=== PATIENT | male | born 1985 | race Hispanic/Latino ===

== ENCOUNTER → 2018-07-11 | Outpatient (REF) ==
[~2018-07-11] MED LIST: ACET65TA OR; CIPR25SS OR; SERT25TA2 OR; TRAM50TA2 OR
--- NOTE | 2018-07-11 11:27 | REP ---
PARTIAL LUMBAR SPINE, THREE VIEWS: HISTORY: Degenerative disc disease. There is no acute fracture or subluxation. The L3-4 through L5-S1 intervertebral discs are decreased in height consistent with disc degeneration. IMPRESSION: Degenerative change as described above. Electronically Signed by Tramaine Benavides MD 07/11/2018 11:29 A
--- NOTE | 2018-07-11 11:30 | REP ---
RIGHT KNEE, FIVE VIEWS: HISTORY: Degenerative joint disease. COMPARISON: 01/15/2007. The patient is status post hardware removal from the distal femur. There is an old healed fracture of the distal femur. There is no acute fracture or dislocation. There is moderate narrowing of the joint spaces. An osteophyte is present on the patella. Calcifications are present in the soft tissue anterior to the distal femur. This represents ligamentous or tendon calcification. Multiple small metallic foreign bodies are present in the overlying soft tissue. IMPRESSION: Degenerative change as described above. Electronically Signed by Tramaine Benavides MD 07/11/2018 11:33 A
== END ==
LOC: M SMT 10:53
PROVIDERS: ATTEND Internal Medicine
DX: Z02.71 Encounter for disability determination (principal)